=== PATIENT | female | born 1985 | race American Indian/Alaskan Native ===

== ENCOUNTER 2019-06-24 00:58 | Emergency (ER) | payer OTHER ==
[2019-06-24] MEDS ORDERED: ACETAMINOPHEN 325 MG TAB ONE (01:41)
[2019-06-24] MEDS ORDERED: ACETAMINOPHEN 325 MG TAB PO ONE (01:45)
[2019-06-24 02:27] LABS: Bilirubin,Urine NEG (Negative); Blood,Urine NEG (Negative); Color,Urine Straw (Yellow); Mucus,Urine FEW /HPF; Protein,Urine <15 mg/dL mg/dL (Negative); Urobilinogen,Urine < 2.0 mg/dL (<2.0); WBC,Urine < 1.0 /HPF (0.0-6.0)
[2019-06-24] MEDS ORDERED: CYCLOBENZAPRINE 10 MG TAB PO ONE (04:13)
--- NOTE | 2019-06-24 04:29 | Ultrasound Report ---
ULTRASOUND OBSTETRIC INDICATION: Acute abdominal and back pain. Clinical Gestational Age (GA): 15 weeks, 2 days TECHNIQUE: Transabdominal. COMPARISON: None available. FINDINGS: There is a live twin intrauterine . Twin A has a heart rate of 133 bpm with an estimated age of 15 weeks, 6 days based on measurements. Twin B is a heart rate of 166 bpm with an estimated age o f 15 weeks, 4 days based on measurements. No acute abnormality is identified. IMPRESSION: 1. Living twin intrauterine with estimated sonographic age of 15 weeks, 5 day(s). 2. No significant sonographic abnormality. Signer Name: Torsten Pemberton MD Signed: 06/24/2019 4:24 AM Workstation Name: [id number]
[2019-06-24 04:31] LABS: Basophils % (Auto) 0.4 % (0.0-1.8); Eosinophils # (Auto) 0.1 K/mm3 (0.0-0.4); Eosinophils % (Auto) 1.3 % (0.0-4.3); Hematocrit 33.7 % (30.3-42.9); Hemoglobin 11.4 gm/dl (10.1-14.3); Lymphocytes # (Auto) 1.9 K/mm3 (1.2-5.4); Lymphocytes % (Auto) 18.5 % (13.4-35.0); Mean Corpuscular HGB Conc 34 % (30-34); Mean Corpuscular Volume 89 fl (79-97); Monocytes # (Auto) 0.9 K/mm3 (0.0-0.8); Monocytes % (Auto) 8.2 % (0.0-7.3); Platelet Count 284 K/mm3 (140-440); Red Cell Distribution Width 13.8 % (13.2-15.2)
[2019-06-24 04:53] LABS: Alanine Aminotransferase 10 units/L (7-56); Albumin 3.6 g/dL (3.9-5); BUN/Creatinine Ratio 14; Blood Urea Nitrogen 7 mg/dL (7-17); Calcium 9.4 mg/dL (8.4-10.2); Hemolysis Index 23
--- NOTE | 2019-06-24 05:37 | Emergency Department Report ---
ED Abdominal Pain HPI - General Chief Complaint: Abdominal Pain Stated Complaint: ABD/BACK PAIN/15 WKS PREG Source: patient Mode of arrival: Ambulatory Limitations: No Limitations - History of Present Illness Initial Comments: Patient is a A0 34-year-old -Citizen Of [place] female who is approximately 15 weeks gestation who presents to the ED with complaint of acute onset persistent severe low back pain that radiates to the lower abdomen for the last one hour. Patient states that she was asleep when she woke up with low back pain that radiates concentrated to the lower abdomen. Patient denies vaginal bleeding, vaginal discharge, dysuria, urinary frequency and urgency, headache, chest pain, shortness of breath, traumatic injury or heavy lifting or cough, nausea and vo miting. MD Complaint: abdominal pain, other (lower back pain) -: Sudden, hour(s) (1) Location: suprapubic (and lower back) Radiation: suprapubic, back (lower back) Migration to: no migration Severity scale (0 -10): 5 Quality: aching, sharp, dull Consistency: constant Improves With: nothing Worsens With: movement Associated Symptoms: denies other symptoms. denies: nausea, vomiting, diarrhea, fever, chills, constipation, dysuria, hematemesis, hematochezia, melena, hematuria, anorexia - Related Data Previous Rx's Medication Instructions Recorded Last Taken Type Cyclobenzaprine [Flexeril] 10 mg PO Q8H PRN #12 tablet 06/24/19 Unknown Rx Allergies Allergy/AdvReac Type Severity Reaction Status Date / Time No Known Allergies Allergy Verified 06/24/19 01:47 ED Review of Systems ROS: Stated complaint: ABD/BACK PAIN/15 WKS PREG Other details as noted in HPI Constitutional: denies: chills, fever Eyes: denies: eye pain, eye discharge, vision change ENT: denies: ear pain, throat pain Respiratory: denies: cough, shortness of breath, wheezing Cardiovascular: denies: chest pain, palpitations Endocrine: no symptoms reported Gastrointestinal: abdominal pain (suprapubic). denies: nausea, vomiting, diarrhea Genitourinary: denies: urgency, dysuria, discharge Musculoskeletal: back pain (lower back pain). denies: joint swelling, arthralgia Skin: denies: rash, lesions Neurological: denies: headache, weakness, paresthesias Psychiatric: denies: anxiety, depression Hematological/Lymphatic: denies: easy bleeding, easy bruising ED Past Medical Hx - Past Medical History Previous Medical History?: No - Surgical History Past Surgical History?: No - Social History Smoking Status: Never Smoker Substance Use Type: None - Medications Home Medications: Home Medications Medication Instructions Recorded Confirmed Last Taken Type Cyclobenzaprine [Flexeril] 10 mg PO Q8H PRN #12 tablet 06/24/19 Unknown Rx ED Physical Exam - General Limitations: No Limitations General appearance: alert, in no apparent distress - Head Head exam: Present: atraumatic, normocephalic, normal inspection - Eye Eye exam: Present: normal appearance, PERRL, EOMI Pupils: Present: normal accommodation - ENT ENT exam: Present: normal exam, normal orophraynx, mucous membranes moist, TM's normal bilaterally, normal external ear exam - Neck Neck exam: Present: normal inspection, full ROM. Absent: tenderness - Respiratory Respiratory exam: Present: normal lung sounds bilaterally. Absent: respiratory distress, wheezes, rales, chest wall tenderness, accessory muscle use, decreased breath sounds - Cardiovascular Cardiovascular Exam: Present: regular rate, normal rhythm, normal heart sounds. Absent: systolic murmur, diastolic murmur, rubs, gallop - GI/Abdominal GI/Abdominal exam: Present: soft, normal bowel sounds, other (Gravid abdomen, no tenderness). Absent: tenderness, guarding, hyperactive bowel sounds, hypoactive bowel sounds, mass - Extremities Exam Extremities exam: Present: normal inspection, full ROM, normal capillary refill - Back Exam Back exam: Present: normal inspection, full ROM, tenderness (bilevel lumbosacral paraspinal musculoskeletal tenderness), muscle spasm, paraspinal tenderness - Neurological Exam Neurological exam: Present: alert, oriented X3, CN II-XII intact, normal gait, reflexes normal - Psychiatric Psychiatric exam: Present: normal affect, normal mood - Skin Skin exam: Present: warm, dry, intact, normal color. Absent: rash ED Course Vital Signs 06/24/19 01:04 Temperature 98.1 F Pulse Rate 89 Respiratory 18 Rate Blood Pressure 110/68 O2 Sat by Pulse 100 Oximetry ED Medical Decision Making - Lab Data Result diagrams: 06/24/19 04:15 06/24/19 04:22 - Radiology Data Radiology results: report reviewed, image reviewed Findings [facility] [address] [place] [address] Ultrasound Report Signed Patient: NAOMI FISHER MR#: [id number] : 1985 Acct:[id number] Age/Sex: 34 / F ADM Date: 06/24/19 Loc: ED Attending Dr: Ordering Physician: SELMA GRIMES III, MD Date of Service: 06/24/19 Procedure(s): US OB >= 14 weeks Fetus Accession Number(s): [id number] cc: SELMA GRIMES III, MD ULTRASOUND OBSTETRIC INDICATION: Acute abdominal and back pain. Clinical Gestational Age (GA): 15 weeks, 2 days TECHNIQUE: Transabdominal. COMPARISON: None available. FINDINGS: There is a live twin intrauterine . Twin A has a heart rate of 133 bpm with an estimated age of 15 weeks, 6 days based on measurements. Twin B is a heart rate of 166 bpm with an estimated age of 15 weeks, 4 days based on measurements. No acute abnormality is identified. IMPRESSION: 1. Living twin intrauterine with estimated sonographic age of 15 weeks, 5 day(s). 2. No significant sonographic abnormality. Signer Name: Torsten Pemberton MD Signed: 06/24/2019 4:24 AM Workstation Name: [id number] Transcribed By: HARESH Dictated By: Torsten Pemberton MD Electronically Authenticated By: Torsten Pemberton MD Signed Date/Time: 06/24/19423 DD/ 9 TD/TT: - Medical Decision Making This is a 34-year-old female who is approximately 15 weeks gestation and who presented to the ED with acute onset low back pain that radiates to the lower abdomen for one hour. In the ED, patient is alert and oriented 3 and is not in distress. Patient was treated for pain with Tylenol and also given muscle relaxants. Lab test results were reviewed and are nonactionable with hCG Quant of [id number]. The rest of the lab test results were unremarkable. ultrasound reveals a live twin intrauterine . Twin A has a heart rate of 133 bpm with an estimated age of 15 weeks, 6 days based on measurements. Twin B has a heart rate of 166 bpm with an estimated age of 15 weeks, 4 days based on measurements. There are no other abnormal findings. On reevaluation, patient's pain is well controlled with medications. Patient was discharged home on pain medications and advised on complete bedrest until followed up by the WELDING OPERATOR physician in 2-3 days. Patient was advised to contact her W[facility]ING OPERATOR physician for further evaluation in 2-3 days. Patient was also advised to return to the ED immediately if symptoms get worse. - Differential Diagnosis Muscle spasm; Abdominal pain in ; UTI; Placental abruptio Critical care attestation.: If time is entered above; I have spent that time in minutes in the direct care of this critically ill patient, excluding procedure time. ED Disposition Clinical Impression: Spasm of muscle of lower back Abdominal pain in Qualifiers: Trimester: second trimester Qualified Code(s): O26.892 - Other specified related conditions, second trimester; R10.9 - Unspecified abdominal pain Disposition: TO HOME OR SELFCARE Is pt being admited?: No Does the pt Need Aspirin: No Condition: Stable Instructions: Abdominal Pain (ED), Muscle Spasm (ED), Acute Low Back Pain (ED) Additional Instructions: Complete bedrest and follow-up with your W[facility]ING OPER[facility] physician in 2-3 days for reevaluation. Take Tylenol as needed for pain. Return to the ED immediately if symptoms get worse. Prescriptions: Cyclobenzaprine [Flexeril] 10 mg PO Q8H PRN #12 tablet PRN Reason: Muscle Spasm Referrals: MAT BRAGA MD [Primary Care Provider] - 3-5 Days Time of Disposition: 05:41 Print Language: BELGIAN
[2019-06-24 06:04] VITALS: BP 112/70
== END 2019-06-24 06:10 | disposition home or self-care (01) ==
LOC: ED 00:58
DX: O26.892 Other specified pregnancy related conditions, second trimester (principal); M62.830 Muscle spasm of back; R10.9 Unspecified abdominal pain; Z79.899 Other long term (current) drug therapy; Z3A.15 15 weeks gestation of pregnancy
CPT/HCPCS: 36415; 76805; 76810; 80053; 81001; 83690; 84702; 85025